=== PATIENT | female | born 1965 | race Caucasian/White ===

== ENCOUNTER 2017-12-22 12:39 | Emergency (ER) | payer MEDICAID ==
[~2017-12-22] VITALS: Ht 170.2 cm; Wt 86.4 kg
[2017-12-22 13:29] VITALS: BP 149/79
[2017-12-22] MEDS ORDERED: CYCL1DRO EACHEYE (13:37)
[2017-12-22] MEDS ORDERED: ASEN5TAB SL (13:37)
[2017-12-22] MEDS ORDERED: TRAM50TA2 PO (13:37)
[2017-12-22] MEDS ORDERED: CLON2TAB12 PO (13:37)
[2017-12-22] MEDS ORDERED: SULF1TAB49 PO (13:37)
[2017-12-22] MEDS ORDERED: GABA600T2 PO (13:37)
[2017-12-22] MEDS ORDERED: ACYC-202 PO (13:37)
[2017-12-22] MEDS ORDERED: PANT-47 PO (13:37)
== END 2017-12-22 13:50 | disposition home or self-care (01) ==
LOC: ER 12:40
DX: G89.29 Other chronic pain (principal); M79.641 Pain in right hand; M79.642 Pain in left hand; M54.9 Dorsalgia, unspecified; M79.672 Pain in left foot; M79.671 Pain in right foot; Z76.0 Encounter for issue of repeat prescription; Z59.0 Homelessness
CPT/HCPCS: 99283

== ENCOUNTER 2018-07-16 14:25 | Emergency (ER) | payer MEDICAID ==
[~2018-07-16] VITALS: Ht 172.7 cm; Wt 70.0 kg
[~2018-07-16 14:25] MED LIST: ACYC-202 PO; ASEN5TAB SL; CLON2TAB12 PO; CYCL1DRO EACHEYE; GABA600T13 PO; PANT-47 PO; SULF1TAB49 PO; TRAM50TA2 PO
[2018-07-16 14:33] VITALS: BP 126/72
[2018-07-16] MEDS ORDERED: SULF1TAB49 PO (15:36)
== END 2018-07-16 15:56 | disposition home or self-care (01) ==
LOC: ER 14:26
DX: L08.9 Local infection of the skin and subcutaneous tissue, unspecified (principal); Z76.0 Encounter for issue of repeat prescription; G89.29 Other chronic pain; Z79.899 Other long term (current) drug therapy; Z59.0 Homelessness; Z60.2 Problems related to living alone
CPT/HCPCS: 99283

== ENCOUNTER 2018-08-19 15:29 | Emergency (ER) | payer MEDICAID ==
[~2018-08-19] VITALS: Ht 170.2 cm; Wt 85.9 kg
[2018-08-19 15:41] VITALS: BP 109/69
[2018-08-19 16:42] LABS: CLARITY,URINE CLOUDY (Clear); COLOR,URINE YELLOW (Yellow); GLUCOSE, URINE NEGATIVE (Neg); KETONES,URINE TRACE mg/dl (Neg); LEUKOCYTE ESTERASE ,URINE MODERATE (Neg); NITRITES, URINE NEGATIVE (Neg); OCCULT BLOOD,URINE LARGE (Neg); PH,URINE 5.5 (4.8-8.0); PROTEIN,URINE TRACE mg/dl (Neg); UROBILINOGEN,URINE 0.2 E.U/dL (0.2-1.0)
[2018-08-19 16:44] LABS: UA COLLECTION TYPE CLN CATCH MIDSTREAM
[2018-08-19 16:47] LABS: SQUAMOUS EPITHELIAL CELL,UR MODERATE /LPF (FEW); WBC,URINE TNTC /HPF (0-4)
[2018-08-19 16:48] LABS: BACTERIA,URINE 2+ /HPF (Neg); RBC,URINE 50-100 /HPF (0-2); WBC CLUMPS,URINE MANY /HPF (NEGATIVE)
[2018-08-19] MEDS ORDERED: CEPH-572 PO (17:03)
== END 2018-08-19 17:14 | disposition home or self-care (01) ==
LOC: ER 15:30
DX: N39.0 Urinary tract infection, site not specified (principal); G89.29 Other chronic pain; F41.9 Anxiety disorder, unspecified; Z79.899 Other long term (current) drug therapy; Z79.2 Long term (current) use of antibiotics; Z59.0 Homelessness; Z98.890 Other specified postprocedural states
CPT/HCPCS: 81001; 87088; 99283

== ENCOUNTER 2023-06-24 10:21 | Day surgery (SDC) | payer MEDICAID ==
[2023-06-18 14:52] LABS: BASOPHILS % (AUTO) 0.4 % (0-1); EOSINOPHILS % (AUTO) 0.1 % (0-6); LYMPHOCYTES # (AUTO) 1.5 X10'3 (1.1-4.8); LYMPHOCYTES % (AUTO) 18.6 % (21-51); MEAN CORPUSCULAR HEMOGLOBIN 32.6 PG (27.0-31.0); MEAN CORPUSCULAR HGB CONC 34.1 g/dL (33.0-36.5); MEAN CORPUSCULAR VOLUME 95.7 FL (78-98); MEAN PLATELET VOLUME 8.5 FL (7.4-10.4); MONOCYTES # (AUTO) 0.5 X10'3 (0-0.9); MONOCYTES % (AUTO) 5.9 % (2-12); NEUTROPHILS # (AUTO) 5.9 X10'3 (1.8-7.7); PRE OP HEMATOCRIT 40.3 % (35.0-45.0); PRE OP HEMOGLOBIN 13.7 g/dL (12.0-16.0); PRE OP PLATELET COUNT 251 X10'3 (140-440); PRE OP WHITE BLOOD COUNT 7.9 10'3 (4.8-10.8); RED BLOOD COUNT 4.21 X10'6 (4.20-5.60); RED CELL DISTRIBUTION WIDTH 13.4 % (11.5-14.5)
[2023-06-18 15:10] LABS: ALBUMIN 3.8 G/DL (3.4-5.0); ALBUMIN/GLOBULIN RATIO 1.2 (1.1-1.5); ALKALINE PHOSPHATASE 83 IU/L (46-116); BLOOD UREA NITROGEN 21 MG/DL (7-18); BUN/CREATININE RATIO 33.9 (10.0-20.0); CHLORIDE 105 MMOL/L (99-107); CREATININE 0.62 MG/DL (0.40-0.90); PRE OP ALT 24 U/L (30-65); PRE OP ANION GAP 8 (8-16); PRE OP AST 19 U/L (10-37); PRE OP BILIRUB, TOTAL 0.2 MG/DL (0.0-1.0); PRE OP GLUCOSE 101 MG/DL (70-104); PRE OP SODIUM 141 MMOL/L (135-145); TOTAL CARBON DIOXIDE 27.9 MMOL/L (24-32); TOTAL PROTEIN 7.1 G/DL (6.4-8.2); eGFR > 90 ML/MIN
[~2023-06-24] VITALS: Ht 170.2 cm; Wt 98.9 kg
[2023-06-24] VITALS (10 sets, daily range): BP systolic 105–146; BP diastolic 64–95; PULSE 67–82; RESP 12–25; TEMP 98.2; O2SAT 95–100
[~2023-06-24 10:21] MED LIST changes: +ACYC-129 PO; -ACYC-202 PO; +ALBU8HFA INH; -ASEN5TAB SL; +BENZ0.5T3 PO; +BIOT1CAP3 PO; -CLON2TAB12 PO; -CYCL1DRO EACHEYE; +DOCU100C40 PO; +ERGO400C PO; +FERR236T3 PO; +MINO75CA; +MULT-1249 PO; +OMEP40CA21 PO; -PANT-47 PO; -SULF1TAB49 PO; -TRAM50TA2 PO
[2023-06-24] MEDS ORDERED: ringers solution, lacted 1,000 ML IV SCH (10:30)
[2023-06-24] MEDS ORDERED: labetalol 20mg/4ml (5mg/ml) syringe IV PRN (10:30)
[2023-06-24] MEDS ORDERED: ondansetron/PF 4mg/2ml inj IV PRN (10:30)
[2023-06-24] MEDS ORDERED: fentaNYL/PF 50MCG/1 ML 2ML syringe IV PRN ×2 (10:30)
[2023-06-24] MEDS ORDERED: morphine 4 MG/ML inj SYRINge IV PRN (10:30)
[2023-06-24] MEDS ORDERED: hydrALAZINE 20mg/ml inj. IV PRN (10:30)
[2023-06-24] MEDS ORDERED: BUPIVAcaine 2.5mg/ml inj 50ml vial (contains preservative) ONE (10:40)
[2023-06-24] MEDS ORDERED: LIDOcaine 1% 30ml preserv. free vial ONE (10:40)
[2023-06-24] MEDS: cefazolin 2gm/D5W 100mL 100 ML IV ONE (10:41)
[2023-06-24] MEDS: ringers solution, lacted 1,000 ML IV SCH (10:42)
[2023-06-24] MEDS: famotidine 20mg tablet PO ONE (10:43)
[2023-06-24] MEDS: albuterol 2.5 MG/3 ML nebule NEB PRN (10:50)
[2023-06-24] MEDS ORDERED: sevoflurane 250ml liquid IH ONE (11:40)
[2023-06-24] MEDS ORDERED: fentaNYL /PF 50mcg/ml 5ml ampule ONE (11:42)
[2023-06-24] MEDS ORDERED: MIDAZolam 1 MG/ML 5ML VIAL ONE (11:42)
[2023-06-24] MEDS ORDERED: LIDOcaine 2% (20mg/ml) 5ml vial ONE (11:43)
[2023-06-24] MEDS ORDERED: rocuronium 10mg/ml inj IV ONE (11:43)
[2023-06-24] MEDS ORDERED: ondansetron/PF 4mg/2ml inj ONE (11:43)
[2023-06-24] MEDS ORDERED: propofol inj 20 ML IV ONE (11:43)
[2023-06-24] MEDS ORDERED: dexamethasone sod phosphate 4mg/ml inj. ONE (11:51)
[2023-06-24] MEDS ORDERED: acetaminophen 1,000mg/100ml IV 100 ML IV ONE (11:55)
[2023-06-24] MEDS: BUPIVAcaine 0.25% w/Epi /PF 30ml vial IJ ONE (12:03)
[2023-06-24] MEDS ORDERED: neostigmine methylsulfate 1 MG/ML 10ml vial ONE (12:30)
[2023-06-24] MEDS ORDERED: glycopyrrolate 0.2mg/ml inj ONE (12:30)
[2023-06-24] MEDS: morphine 2 MG/ML inj. syringe IV PRN (13:48)
[2023-06-24] MEDS ORDERED: HYDROcodone/acetaminophen 5mg/325mg tablet PO PRN (13:50)
== END 2023-06-24 14:22 | disposition home or self-care (01) ==
LOC: PAS 10:21
PROVIDERS: ATTEND Surgery
DX: K40.91 Unilateral inguinal hernia, without obstruction or gangrene, recurrent (principal); K40.90 Unilateral inguinal hernia, without obstruction or gangrene, not specified as recurrent; E66.9 Obesity, unspecified; K21.9 Gastro-esophageal reflux disease without esophagitis; J45.909 Unspecified asthma, uncomplicated; Z87.891 Personal history of nicotine dependence; Z79.899 Other long term (current) drug therapy; Z90.49 Acquired absence of other specified parts of digestive tract; Z90.89 Acquired absence of other organs; Z98.891 History of uterine scar from previous surgery; Z98.890 Other specified postprocedural states; Z68.34 Body mass index [BMI] 34.0-34.9, adult; Z80.3 Family history of malignant neoplasm of breast; Z82.49 Family history of ischemic heart disease and other diseases of the circulatory system; Z82.61 Family history of arthritis; Z83.3 Family history of diabetes mellitus
CPT/HCPCS: 36415; 49650; 49651; 80053; 82948; 85025; 93005; 94640; 94760; C1781; J0131; J0665; J0690; J1100; J2250; J2270; J2405; J2704; J2710; J3010; J3490; J7030; J7120; S2900; Z7506; Z7508; Z7512; A4215; A4618; S0020